=== PATIENT | female | born 1980 ===

== ENCOUNTER 2025-05-12 08:04 | Outpatient (CLI) | payer OTHER ==
--- NOTE | 2025-05-12 10:09 | DVHSR ---
APPROVED REPORT EXAM: Two-dimensional and M-mode echocardiogram with Doppler and color Doppler. DIMENSIONS LVDd4.0 (3.8-5.7cm)LA (2D)3.3 (1.9-4.0cm)Aortic Root3.4 (2.0-3.7cm) LVDs2.7 (2.5-4.0cm)LA (MM) (1.9-4.0cm)Aortic Cusp Exc1.7 (1.5-2.0cm) EF (%) 60.0 (55-70%)Rt. Atrium3.8 (1.9-4.0cm)Asc. Aorta cm IVSd0.9 (0.7-1.1cm)RV (D)3.2 (1.8-2.4cm) PWd1.0 (0.7-1.1cm) Mitral Valve MitralMitral Stenosis E wave0.80m/sMV Mean GR.mmHg A wave0.98m/sMV Peak GR.mmHg E/A ratio0.82D MVAcm2 DECEL [id number] 1/2 [place] Aortic Valve Aortic ValveAortic Stenosis V10.86m/Jaja Mean GR.2mmHg V21.05m/Jaja Peak GR.4mmHg LVOT Diameter2.0 (1.8-2.4cm)Doppler AVA2.57cm2 Pulmonic Valve V21.13m/s LEFT VENTRICLE The left ventricle is normal size. The left ventricle is normal in structure and function. The Ejection Fraction is within normal limits. RIGHT VENTRICLE The right ventricle is normal size. ATRIA The left atrial size is normal. The right atrium size is normal. The interatrial septum is intact with no evidence for an atrial septal defect. The atrial septum is aneurysmal. MITRAL VALVE The mitral valve is normal in structure. There is no mitral valve regurgitation noted. PULMONIC VALVE The pulmonic valve is not well visualized. TRICUSPID VALVE The tricuspid valve is grossly normal. AORTIC VALVE The aortic valve opens well. No aortic regurgitation is present. GREAT VESSELS The aortic root is normal size. PERICARDIAL EFFUSION There is no pericardial effusion. Other Information Technically limited study due to body habitus and implants. Conclusion EF >55%
== END 2025-05-12 17:00 | disposition home or self-care (01) ==
LOC: Rad HDHVI 08:04
PROVIDERS: ATTEND Internal Medicine Cardiovascular Disease
DX: I10 Essential (primary) hypertension (principal)
CPT/HCPCS: 93306

== ENCOUNTER 2025-05-19 08:00 | Outpatient (CLI) | payer OTHER ==
[~2025-05-19] VITALS: Ht 162.6 cm; Wt 72.6 kg
--- NOTE | 2025-05-22 16:06 | DVHSR ---
APPROVED REPORT Exam: Nuclear Stress Test Indication: Screening for CAD Ht: 5 ft 4 in Wt: 160 lbs BSA: 1.78 m2 HR: 78 bpm BP: 129/92 mmHg BMI: 27.46 Rhythm: NSR Medical History Medical History: HTN, Smoking Medications: None Allergies: No known drug allergies Stress Test Details Stress Test: Exercise stress testing was performed using a Franky protocol. HR Resting HR: 78 bpm Max Heart Rate (APMHR): 178.268087 bpm Max HR Achieved: 155 bpm Target HR (85% APMHR): 151.170099 bpm % of APMHR: 87.08 Recovery HR: 105 bpm HR response to stress: Normal HR response to stress BP Resting BP: 129/92 mmHg Max BP: 187/94 mmHg Recovery BP: 133/88 mmHg BP response to stress: Hypertensive response ECG Resting ECG: Sinus Rhythm Stress ECG: Sinus Tachycardia Arrhythmia: PVC Recovery ECG: Sinus Tachycardia Clinical Reason for Termination: Leg Fatigue, Target HR achieved Stress Symptoms: Leg Fatigue Exercise duration: 7 min 10 sec Exercise capacity: 10.10 METs Stress ECG Conclusion NON ISCHEMIC CLINICAL RESPONSE NON ISCHEMIC ECG RESPONSE NON ISCHEMIC CARDIOLITE IMAGES EF >55% NM EXAM: Myocardial Perfusion REST/STRESS Imaging Protocol: Rest Tc-99m/Stress Tc-99m 1 day Resting Data Rest SPECT myocardial perfusion imaging was performed in supine position 30 minutes following the intravenous injection of 10.35 mCi of Tc-99m Sestamibi. Time of rest injection: 812 Date: 05/19/2025 Time of rest imagin Date: 05/19/2025 Administration Route: IV Administration Site: Left AC Exercise Stress At peak stress, the patient was injected intravenously with 32.6 mCi of Tc-99m Sestamibi. Time of stress injection: 916 Date: 05/19/2025 Time of stress imagin Date: 05/19/2025 Administration Route: IV Administration Site: Left AC Heart Rate at time of stress injection: 155 bpm. Patient continued to exercise for 1 minute(s). Gated Stress SPECT was performed 15 minutes after stress injection. The images were gated to evaluate regional wall motion and calculate left ventricular ejection fraction. Comments Cardiolite injection at 6 minutes, 17 seconds into test. Nuclear Conclusion NON ISCHEMIC CLINICAL RESPONSE NON ISCHEMIC ECG RESPONSE NON ISCHEMIC CARDIOLITE IMAGES EF >55%
== END 2025-05-19 17:00 | disposition home or self-care (01) ==
LOC: Rad HDHVI 08:00
PROVIDERS: ATTEND Internal Medicine Cardiovascular Disease
DX: I49.3 Ventricular premature depolarization (principal); R00.0 Tachycardia, unspecified; Z13.6 Encounter for screening for cardiovascular disorders; I10 Essential (primary) hypertension; F17.210 Nicotine dependence, cigarettes, uncomplicated
CPT/HCPCS: 78452; 93017; A9500; 96374

== ENCOUNTER 2025-06-24 08:00 | Outpatient (CLI) | payer OTHER | END 2025-06-24 17:00 | disposition home or self-care (01) | LOC: Rad HDHVI 08:00 | PROVIDERS: ATTEND Internal Medicine Cardiovascular Disease | DX: I10 Essential (primary) hypertension (principal) | CPT/HCPCS: 93880 ==